=== PATIENT | female | born 1955 | race Caucasian/White ===

== ENCOUNTER 2017-01-04 12:08 | Emergency (ER) | payer BC ==
[~2017-01-04] VITALS: Ht 172.7 cm; Wt 95.5 kg
[2017-01-04] MEDS ORDERED: SIMV10TA2 (12:21)
[2017-01-04] MEDS ORDERED: FLAX100012 PO (12:21)
[2017-01-04] MEDS ORDERED: FISH100049 PO (12:21)
[2017-01-04] MEDS ORDERED: OMEP20CA3 (12:21)
[2017-01-04] MEDS ORDERED: ASPI1TAB15 (12:21)
[2017-01-04] MEDS ORDERED: FURO20TA2 (12:21)
[2017-01-04] MEDS ORDERED: GLUCTAB (12:21)
[2017-01-04] MEDS ORDERED: METO1TAB7 (12:21)
[2017-01-04] MEDS ORDERED: MULTCAP11 PO (12:21)
[2017-01-04 12:36] LABS: BASO % 0.4 % (0.0-1.0); EOS # 0.2 10^3/uL (0.0-0.50); IMMATURE GRANULOCYTE % 0.1 % (0-0); LYMPH % 29.5 % (24.0-44.0); MEAN CORPUSCULAR HEMOGLOBIN 29.5 pg (27.0-33.0); MEAN CORPUSCULAR HGB CONC 32.8 g/dl (32.0-36.5); MEAN CORPUSCULAR VOLUME 89.8 fl (80.0-96.0); MONO # 0.5 10^3/uL (0.0-0.8); MONO % 6.7 % (0.0-5.0); NEUTROPHILS % 60.3 % (36.0-66.0); PLATELET COUNT, AUTOMATED 289 10^3/uL (150-450); RED CELL DISTRIBUTION WIDTH 13.9 % (11.5-14.5); WHITE BLOOD COUNT 6.7 10^3/uL (4.0-10.0)
[2017-01-04] MEDS ORDERED: ASPIRIN 81 MG CHEW TABLET PO ONE (12:45)
[2017-01-04] MEDS ORDERED: GI COCKTAIL 50ML BTL(HYOSCYAMINE/MAALOX/LIDOCAINE VISCOUS)(1:3:1) PO ONE (12:45)
[2017-01-04 12:46] LABS: INR 0.85
[2017-01-04 13:02] LABS: ALBUMIN/GLOBULIN RATIO 1.14 (1.00-1.93); ALKALINE PHOSPHATASE 77 U/L (45-117); ALT/SGPT 34 U/L (12-78); ANION GAP 7 MEQ/L (8-16); AST/SGOT 23 U/L (15-37); BILIRUBIN,DIRECT < 0.1 MG/DL (0.0-0.2); BILIRUBIN,TOTAL 0.3 MG/DL (0.2-1.0); BLOOD UREA NITROGEN 23 MG/DL (7-18); CALCIUM LEVEL 9.1 MG/DL (8.8-10.2); CARBON DIOXIDE LEVEL 29 MEQ/L (21-32); CHLORIDE LEVEL 105 MEQ/L (98-107); CREATININE FOR GFR 0.74 MG/DL (0.55-1.02); GLOMERULAR FILTRATION RATE > 60.0 (>45); GLUCOSE, FASTING 80 MG/DL (80-110); POTASSIUM SERUM 4.1 MEQ/L (3.5-5.1); SODIUM LEVEL 141 MEQ/L (136-145); TOTAL PROTEIN 7.5 GM/DL (6.4-8.2)
[2017-01-04] MEDS ORDERED: NS 1,000 ML IV SCH (13:09)
[2017-01-04] MEDS ORDERED: ISOVUE-370 76% 100ML VIAL (Q9967) As Ordered ONE (13:15)
--- NOTE | 2017-01-04 13:24 | REP ---
Chest two views HISTORY: Chest pain Comparison: 05/10/2004 The lungs are clear. The heart is normal in size. The pulmonary vasculature is normal in appearance. The bony structure is intact. IMPRESSION: No acute disease. Signed by Meir Trejo MD 01/04/2017 01:15 P
--- NOTE | 2017-01-04 14:05 | REP ---
CT ANGIO CHEST: HISTORY: Chest pain. CONTRAST: Isovue 370, 75 mL. There are no filling defects in the main , right and left pulmonary arteries or their branches. The lungs are clear. There is no pleural effusion. There is no mediastinal mass. The heart is normal in size. Degenerative change is present in the thoracic spine. IMPRESSION: There is no pulmonary embolism. Signed by Meir Trejo MD 01/04/2017 02:12 P
--- NOTE | 2017-01-04 15:12 | ECGEPIP ---
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
[2017-01-04 18:51] VITALS: BP 141/73
--- NOTE | 2017-01-06 09:11 | ECGEPIP ---
Stationary ECG Study [facility] - ED Test Date: 2017-01-04 Pat Name: SUDHEER CLARK Department: Room: - Gender: F Elevated Guard: nt : 1955 Requested By: GABRIEL Nava Order Number: [id number] Reading MD: Cierra Gilman Measurements Intervals [place] Rate: 53 P: 61 [place]: 145 QRS: 20 QRSD: 93 T: 38 QT: 407 QTc: 384 Interpretive Statements SINUS BRADYCARDIA DECREASED RATE 01/04/17 12:16 Electronically Signed On 01-06-2017 9:11:40 EDT by Cierra Gilman
== END 2017-01-04 19:07 | disposition home or self-care (01) ==
LOC: M ED 12:08
DX: R07.9 Chest pain, unspecified (principal); E11.9 Type 2 diabetes mellitus without complications; I10 Essential (primary) hypertension; E78.5 Hyperlipidemia, unspecified; K21.9 Gastro-esophageal reflux disease without esophagitis; M54.30 Sciatica, unspecified side; Z79.84 Long term (current) use of oral hypoglycemic drugs; Z79.899 Other long term (current) drug therapy; Z79.82 Long term (current) use of aspirin; Z91.040 Latex allergy status; Z88.1 Allergy status to other antibiotic agents; Z88.2 Allergy status to sulfonamides
CPT/HCPCS: 71020; 71275; 80048; 80076; 82550; 82553; 83690; 85025; 85610; 85730; 93005; 93041; 94760; 96360; 96361; 99285; Q9967

== ENCOUNTER → 2017-04-23 | Outpatient (CLI) | payer BC | LOC: M WHC 13:15 | DX: Z12.31 Encounter for screening mammogram for malignant neoplasm of breast (principal); Z78.0 Asymptomatic menopausal state | CPT/HCPCS: 77067 ==

== ENCOUNTER 2017-07-27 09:19 | Emergency (ER) | payer BC | END 2017-07-27 12:54 | disposition home or self-care (01) | LOC: M ED 09:19 | DX: M71.21 Synovial cyst of popliteal space [Baker], right knee (principal); M17.11 Unilateral primary osteoarthritis, right knee; I25.10 Atherosclerotic heart disease of native coronary artery without angina pectoris; I25.2 Old myocardial infarction; E11.9 Type 2 diabetes mellitus without complications; I10 Essential (primary) hypertension; Z79.84 Long term (current) use of oral hypoglycemic drugs; Z79.899 Other long term (current) drug therapy; Z98.890 Other specified postprocedural states; Z91.040 Latex allergy status; Z88.1 Allergy status to other antibiotic agents; Z88.2 Allergy status to sulfonamides | CPT/HCPCS: 73564 ==

== ENCOUNTER → 2018-04-30 | Outpatient (CLI) | payer BC ==
[~2018-04-30] MED LIST: ACET30TAB PO; ASPI1TAB15; CLAR10CA3 PO; EQ O20TA4 PO; FISH100049 PO; FLAX100012 PO; FURO20TA2; GLUCTAB; LASI20TA3 PO; METO1TAB7; MULTCAP11 PO; OMEP20CA3; SIMV10TA2; TOPR50TA23 PO
--- NOTE | 2018-04-30 11:19 | REPMRS ---
Patient History The patient states she had a clinical breast exam in 06/2017. Patient is postmenopausal and is nulliparous. Family history of endometrial cancer at age 60 in mother. No Hormone Replacement Therapy Digital Woman Screen Mammo: April 30, 2018 - Exam #: [id number] Bilateral CC and MLO view(s) were taken. Technologist: India Shetty, Technologist Prior study comparison: April 23, 2017, digital woman screen mammo performed at [facility]. March 06, 2016, digital woman screen mammo performed at [facility]. March 05, 2015, digital bilateral screening mammo, performed at [facility]. FINDINGS: There are scattered fibroglandular densities. There has been no change in the appearance of the mammogram from the prior studies. There is a mild amount of scattered fibroglandular density which is fairly symmetric. There is no interval development of dominant mass, architectural distortion, or clustered microcalcification suggestive of malignancy. 3-D tomosynthesis shows no additional findings. Assessment: BI-RADS/ACR category 1 mammogram. Negative Mammogram. Recommendation Routine screening mammogram of both breasts in 1 year (for women over age 40). This patient's Lifetime Breast Cancer RIsk is estimated at 9.3 %. This mammogram was interpreted with the aid of an FDA-approved computer-aided dectection system. Electronically Signed By: Bola Stewart MD 04/30/18 [id number]
== END ==
LOC: M WHC 09:40
PROVIDERS: ATTEND Obstetrics & Gynecology
DX: Z12.31 Encounter for screening mammogram for malignant neoplasm of breast (principal); Z78.0 Asymptomatic menopausal state; Z80.49 Family history of malignant neoplasm of other genital organs

== ENCOUNTER 2018-12-08 12:42 | Emergency (ER) | payer BC ==
[~2018-12-08] VITALS: Ht 172.7 cm; Wt 102.3 kg
[~2018-12-08 12:42] MED LIST changes: +ACET-716 PO; -ACET30TAB PO; -OMEP20CA3; +OMEP20CA4; +TOPR50TA PO; -TOPR50TA23 PO
--- NOTE | 2018-12-08 14:30 | REP ---
RIGHT FOOT: Four views. HISTORY: Injury. Pain at the base of the great toe. FINDINGS: Four views of the right foot demonstrate overall normal mineralization. No fracture or subluxation is seen. There is Achilles calcaneal spurring. No erosive change. IMPRESSION: Achilles calcaneal spur. Otherwise, negative radiographs of the right foot. No fracture seen. Electronically Signed by Martin Stewart MD 12/08/2018 02:38 P
[2018-12-08 15:21] VITALS: BP 123/72
== END 2018-12-08 15:27 | disposition home or self-care (01) ==
LOC: M ED 12:42
DX: S90.851A Superficial foreign body, right foot, initial encounter (principal); X58.XXXA Exposure to other specified factors, initial encounter; Y92.89 Other specified places as the place of occurrence of the external cause; Y93.89 Activity, other specified; Y99.8 Other external cause status; E11.9 Type 2 diabetes mellitus without complications; I25.2 Old myocardial infarction; K21.9 Gastro-esophageal reflux disease without esophagitis; Z88.2 Allergy status to sulfonamides; Z91.040 Latex allergy status; Z79.899 Other long term (current) drug therapy; Z79.82 Long term (current) use of aspirin

== ENCOUNTER → 2018-12-28 | Outpatient (CLI) | payer BC ==
[2018-12-28 09:12] LABS: HEMATOCRIT 41.1 % (36.0-47.0); HEMOGLOBIN 12.8 g/dl (12.0-15.5); MEAN CORPUSCULAR HEMOGLOBIN 26.8 pg (27.0-33.0); MEAN CORPUSCULAR HGB CONC 31.1 g/dl (32.0-36.5); PLATELET COUNT, AUTOMATED 302 10^3/uL (150-450); RED BLOOD COUNT 4.78 10^6/uL (4.00-5.40); WHITE BLOOD COUNT 6.6 10^3/uL (4.0-10.0)
[2018-12-28 09:23] LABS: INR 0.96; PROTHROMBIN TIME 12.5 SECONDS (11.8-14.0)
[2018-12-28 09:35] LABS: ERYTHROCYTE SEDIMENTATION RATE 13 mm/hr (0-30)
[2018-12-28 09:45] LABS: ALT/SGPT 31 U/L (12-78); BILIRUBIN,TOTAL 0.4 MG/DL (0.2-1.0); BLOOD UREA NITROGEN 24 MG/DL (7-18); CALCIUM LEVEL 9.5 MG/DL (8.8-10.2); CARBON DIOXIDE LEVEL 30 MEQ/L (21-32); CHLORIDE LEVEL 106 MEQ/L (98-107); CREATININE FOR GFR 0.79 MG/DL (0.55-1.30); GLOMERULAR FILTRATION RATE > 60.0 (>45); GLUCOSE, FASTING 109 MG/DL (70-100); POTASSIUM SERUM 4.7 MEQ/L (3.5-5.1); SODIUM LEVEL 142 MEQ/L (136-145); TOTAL PROTEIN 7.2 GM/DL (6.4-8.2)
--- NOTE | 2018-12-28 23:29 | REP ---
PA and lateral chest: Comparison is 01/04/2017. There is also a comparison chest CT dated 01/04/2017. The lung kerr are clear. Cardiac size is normal. The right hilus is unremarkable. The left hilus is enlarged but is unchanged. There is no left hilar mass upon review of the Yakov CT. The left pulmonary artery appears congenitally enlarged. The mediastinum and skeletal structures are unremarkable. Impression: Essentially negative PA and lateral chest. 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 Electronically Signed by Sedrick Franklin MD 12/28/2018 10:51 A
== END ==
LOC: M LAB 08:18
PROVIDERS: ATTEND Orthopaedic Surgery
DX: Z01.818 Encounter for other preprocedural examination (principal); M17.11 Unilateral primary osteoarthritis, right knee

== ENCOUNTER 2019-01-17 06:39 | Inpatient (IN) | payer BC ==
--- NOTE | 2019-01-10 16:15 | HPE ---
DATE OF ANTICIPATED ADMISSION: 01/17/2019 CHIEF COMPLAINT: Right knee pain. HISTORY OF PRESENT ILLNESS: Audelia is a pleasant, 63-year-old female with progressively worsening right knee pain and stiffness. She has failed to improve with conservative treatment. She has elected for surgery for her continued symptoms. She has pain with weightbearing activities and her activities of daily living. X-rays of her knee are notable for advanced osteoarthritis of the right knee joint. She has consented for a right total knee arthroplasty by Dr. Ramo Heredia. Medical optimization was performed by CARLOS ENRIQUE [place]. ALLERGIES: LATEX and SULFA DRUGS. CURRENT MEDICATIONS: - baby aspirin once a day - Claritin 10 mg once a day - Lasix 20 mg 1/2 tablet a day - metformin 500 mg a day - omeprazole 40 mg a day - Toprol XL 50 mg once a day PAST MEDICAL HISTORY: Includes pre diabetes, hypertension, and hyperlipidemia. PAST SURGICAL HISTORY: Includes tonsillectomy, wisdom teeth extraction, dilation and curettage (D and C) with cone biopsy, heart catheterization, and two right knee arthroscopies. SOCIAL HISTORY: The patient is retired and does not smoke or drink alcohol. FAMILY HISTORY: Noncontributory. REVIEW OF SYSTEMS: This patient denies chest pain, heart palpitations, cough, wheezing, difficulty breathing and shortness of breath. She denies abdominal pain, nausea, vomiting, diarrhea or constipation. She denies recent upper respiratory infection or urinary tract infection symptoms. She does complain of persistent pain in the right knee. PHYSICAL EXAMINATION: General: She is A well-nourished, well-developed, in no acute distress, alert female patient. She walks with a moderate limp favoring the right lower extremity. She is not using assistive devices. Vital Signs: She is 5 feet, 8-3/4 inches tall, weighs 227.8 pounds. Temperature 96.6, blood pressure 118/76, pulse 72 and respirations of 16. Neck was supple without adenopathy or jugular venous distension. Lungs were clear to auscultation without rales or wheeze. Heart: Regular rate and rhythm. Abdomen: Bowel sounds were present. Extremities: Examination of the knee revealed intact skin. She had decreased range of motion secondary to pain and stiffness. The limb is neurovascularly intact. LABORATORY DATA: Chest x-ray showed no acute cardiopulmonary disease processes. ProTime was 12.5, INR 0.96. CBC showed MCH of 26.8, mean corpuscular hemoglobin of 31.1, red cell distribution width of 15.2. Sed rate was 13, glucose 109. BUN 24, creatinine 0.79. Sodium 142, potassium 4.7. We have not received the EKG or the clearance note. IMPRESSION: Symptomatic osteoarthritis of the right knee joint. PLAN: The patient has consented for a right total knee arthroplasty by Dr. Ramo Heredia. We will receive her EKG preoperatively and complete the record.
[2019-01-17] VITALS (9 sets, daily range): BP systolic 125–143; BP diastolic 68–78
[~2019-01-17] VITALS: Ht 172.7 cm; Wt 105.6 kg
[~2019-01-17 06:39] MED LIST changes: -ASPI1TAB15; +ASPI1TAB15 PO; +CLOT1CRE71 TOP; +FISH306C PO; -GLUCTAB; +GLUCTAB PO; +LIDOCAINE 1% MDV 20ML VIAL SQ PRN; +LR 1,000 ML IV ONE; +MULTCAP PO; +OMEP-221 PO; -SIMV10TA2; +SIMV10TA2 PO; +ceFAZolin SOD 2 GM in IV 1 EA IV ONE; +fentaNYL 100 MCG/2 ML INJECTION (J3010) IV SCH
[2019-01-17] MEDS ORDERED: PROPOFOL 500 MG/50 ML VIAL As Ordered ONE (07:04)
[2019-01-17] MEDS ORDERED: LIDOCAINE 2% INJ 100 MG/5 ML SDV (FOR ANES.) As Ordered ONE (07:05)
[2019-01-17] MEDS ORDERED: fentaNYL 100 MCG/2 ML INJECTION (J3010) As Ordered ONE ×2 (07:05→08:20)
[2019-01-17] MEDS ORDERED: MIDAZOLAM INJ 2 MG/2 ML VIAL (J2250) As Ordered ONE ×2 (07:05→08:20)
[2019-01-17] MEDS ORDERED: dexameTHASONE 4 MG/ML 1ML VIAL (J1100) As Ordered ONE (07:08)
[2019-01-17] MEDS ORDERED: ONDANSETRON 4MG/2ML VIAL (J2405) As Ordered ONE (07:09)
[2019-01-17] MEDS ORDERED: BUPIVACAINE LIPOSOME/PF 1.3% 20ML VIAL (13.3MG/ML)(EXPAREL)(C9290 PER1MG) As Ordered ONE (07:14)
[2019-01-17] MEDS ORDERED: ceFAZolin 1GM INJ (J0690 PER 500MG) As Ordered ONE (07:14)
[2019-01-17] MEDS ORDERED: TRANEXAMIC ACID 100 MG/ML 10ML VIAL As Ordered ONE (07:14)
[2019-01-17] MEDS ORDERED: EPINEPHrine INJ 1 MG/ML 1ML AMP As Ordered ONE (07:15)
--- NOTE | 2019-01-17 07:55 | IPN ---
DATE: 01/17/2019 The patient seen and examined. She wished to go ahead with a right total knee arthroplasty. She understands the nature this, the risks of bleeding, infection, damage to nerves, vessels, persistent pain, wear loosening, blood clots, medical problems, among others.
[2019-01-17] MEDS: MIDAZOLAM INJ 2 MG/2 ML VIAL (J2250) IV SCH ×2 (08:30→08:34)
[2019-01-17] MEDS ORDERED: EPINEPHrine INJ 1 MG/ML 1ML AMP ONE (10:28)
[2019-01-17] MEDS ORDERED: dexameTHASONE 10 MG/1 ML VIAL PRES.FREE (J1100) ONE (10:28)
[2019-01-17] MEDS ORDERED: ROPIvacaine 0.5% 30 ML INJECTION (J2795 PER 1MG) ONE ×2 (10:28→10:30)
[2019-01-17] MEDS ORDERED: LIDOCAINE 1% MDV 20ML VIAL ONE (10:30)
[2019-01-17] MEDS ORDERED: PROPOFOL 200 MG/20 ML VIAL As Ordered ONE (10:41)
--- NOTE | 2019-01-17 11:25 | RO ---
DATE OF PROCEDURE: 01/17/2019 PREOPERATIVE DIAGNOSIS: Right knee osteoarthritis. POSTOPERATIVE DIAGNOSIS: Right knee osteoarthritis. PROCEDURE: Right total knee arthroplasty using an ATTUNE rotating platform posterior stabilized, size 5 femur, size 6 tibial tray, 7 polyethylene, 35 patellar button. SURGEON: Ramo Heredia MD DEVOPS DEVELOPER: JAYLEEN Mcdaniels ANESTHESIA: Spinal. ESTIMATED BLOOD LOSS: Less than 50 mL. COMPLICATIONS: None. INDICATIONS: This is a 63-year-old who has had gradually worsening knee pain and wished to have surgical treatment. PROCEDURE: The patient was taken to the operating room and placed in supine position after spinal anesthesia was induced. The right lower extremity was prepped and draped in usual sterile fashion. A time out was performed. Tourniquet was inflated. A longitudinal incision was made over the anterior aspect the right knee. Sharp dissection was carried down through subcutaneous tissue. I then did a medial parapatellar arthrotomy, flexed the knee up then used the canal initiating reamer followed by the intramedullary guide set at 7 degrees of valgus and 9 mm cut. This was pinned in place and the distal femoral cut was made taking an extra 2 mm due to a flexion contracture. She did have a preexisting stiff the with some loss of extension about 10 degrees in flexion to only about 90. I sized the femur to be a 5, used the cutting block, secured it in place and made the remaining cuts. Directed our attention to the tibia. The tibial alignment guide was then placed, the proximal tibia cut was made removing about 4 mm from the low side. I then used the trolley wire installer to remove soft tissue and osteophytes from either side of the knee and made the box cut on the femoral side using a saw and the guide. We then prepared the tibial surface. It was sized to be a 6, pinned in place, drilled and broached. Trial components were then inserted and I was very pleased with the balance and alignment. We used a size 7 polyethylene. The fit was excellent. I then freehand cut the patella sized it to be a 35, the drill holes were placed in the patella and femur. I did have do somewhat of a lateral release to allow for tracking, which is common of valgus knee. I then removed the trial components, irrigated, placed the Exparel in the deep tissues, dried the bony surface cemented in the components, removed excess bone cement, held the patella in place until the cement had hardened. Irrigated copiously as I had several times prior to this and then placed the TXA deep in the wound and closed the deep layer of #1 Vicryl suture and running STRATAFIX and a final deep irrigation was performed prior to complete wound closure. I then used #2-0 to close the subcu and the skin with yuly. Sterile dressing was applied. Tourniquet was deflated. She was taken to recovery room in stable condition. No known complications. The plan will be routine postop. The supply assistant was instrumental in holding retractors and assisting in mixing bone cement and assisting in wound closure.
[2019-01-17] MEDS ORDERED: MORPHINE 4 MG/ML 1ML VIAL/SYRINGE (J2270) IV PRN ×2 (11:30)
[2019-01-17] MEDS ORDERED: fentaNYL 100 MCG/2 ML INJECTION (J3010) IV PRN (11:30)
[2019-01-17] MEDS ORDERED: ACETAMINOPHEN TAB 650MG DOSE (2X325MG) PO PRN (11:30)
[2019-01-17] MEDS ORDERED: LR 1,000 ML IV SCH ×2 (11:30)
[2019-01-17] MEDS ORDERED: ONDANSETRON 4MG/2ML VIAL (J2405) IV PRN ×2 (11:30)
[2019-01-17] MEDS ORDERED: oxyCODONE 5MG TAB PO PRN (11:30)
[2019-01-17] MEDS ORDERED: FLEET ENEMA PR PRN (11:30)
[2019-01-17] MEDS ORDERED: MORPHINE 10 MG/ML 1ML VIAL (J2270) IV PRN (11:30)
[2019-01-17] MEDS ORDERED: DEXTROSE 50% 50 ML SYRINGE IV PRN (11:45)
[2019-01-17] MEDS ORDERED: GLUCOSE 4 GM CHEW TABLET PO PRN (11:45)
[2019-01-17] MEDS ORDERED: GLUCAGON FOR INJ 1 MG VIAL (J1610) SC PRN (11:45)
[2019-01-17] MEDS: HumaLOG INSULIN (NovoLOG) PER UNIT SC SCH ×2 (12:00→17:30)
--- NOTE | 2019-01-17 12:12 | REP ---
Right knee series: Two views. History: Postop. Comparison right knee radiographs July 27 1017. Findings: AP and lateral views of the right knee demonstrate anterior skin yuly. Right knee arthroplasty is seen in good position. There is periarticular soft-tissue swelling and periarticular soft tissue emphysema. Impression: Status post right knee arthroplasty. Electronically Signed by Martin Stewart MD 01/17/2019 12:04 P
[2019-01-17] MEDS ORDERED: POLYVINYL ALCOHOL OPHTH SOLN 15 ML(LIQUITEARS) OU PRN (15:15)
[2019-01-17] MEDS: ceFAZolin SOD 2 GM in IV 1 EA IV SCH (15:46)
--- NOTE | 2019-01-17 16:05 | HPEPDOC ---
General Date of Admission Jan 17, 2019 at 06:39 Date of Service: Jan 17, 2019 Chief Complaint The patient is a 63-year-old female admitted with a reason for visit of Osteoarthritis Right Knee. Source: Patient, RN/MD, Old records History of Present Illness Consultation Report Consultation requested by Dr Heredia Consultation for management of medical commorbidities HPI: 63-year-old female with progressively worsening right knee pain and stiffness. She has failed to improve with conservative treatment. She has elected for surgery for her continued symptoms. She has pain with weightbearing activities and her activities of daily living. X-rays of her knee are notable for advanced osteoarthritis of the right knee joint. She was admitted by orthopedics for elective right total knee replacement. Hospitalist consulted for management of medical comorbidities. Now pateint is complaining of right eye scratchiness and right nasal congestion and runny nose on the right . She sais she lso had severel sneezes a little earlier. She said her eyes were also red. . Her knee pain is controlled as she has the pain buster in it. Home Medications Scheduled Aspirin (Aspirin EC) 81 Mg Tab, 81 MG PO DAILY, (Reported) Clotrimazole/Betamethasone Dip (Clotrimazole-Betamethasone Crm) 15 Gm Cream..g., 1 UNIT TOP BID, (Reported) to left ear Furosemide (Lasix) 20 Mg Tab, 10 MG PO DAILY, (Reported) Loratadine (Claritin) 10 Mg Cap, 10 MG PO DAILY, (Reported) Metformin HCl (Glucophage Xr) 500 Mg Tab, 500 MG PO DAILY, (Reported) Metoprolol Succinate (Toprol Xl) 50 Mg Tab, 50 MG PO DAILY, (Reported) Multivitamin (Multivitamins) 1 Each Capsule, 1 CAP PO DAILY, (Reported) Omeprazole (Omeprazole) 40 Mg Capsule.dr, 40 MG PO DAILY, (Reported) Simvastatin (Simvastatin) 10 Mg Tab, 10 MG PO DAILY, (Reported) Allergies Coded Allergies: Sulfa (Sulfonamide Antibiotics) (Verified Allergy, Unknown, 01/10/19) latex (Verified Allergy, Unknown, 01/10/19) sulfamethoxazole (Verified Adverse Reaction, Unknown, GI UPSET, 01/10/19) trimethoprim (Verified Adverse Reaction, Unknown, GI UPSET, 01/10/19) Past Medical History Medical History diabetes, hypertension, hyperlipidemia, LORENA not on CPAP or oxygen as allergic to latex and face swells up. Surgical History tonsillectomy, wisdom teeth extraction, dilation and curettage (D and C) with cone biopsy, heart catheterization, and two right knee arthroscopies. Social History * Smoker: Denies Alcohol: Denies Drugs: denies A-FIB/CHADSVASC A-FIB History Current/History of A-Fib/PAF?: No Review of Systems Constitutional: Denies: Chills, Fever, Night Sweats Eyes: Reports: Pain, Redness ENT: Reports: Other Symptoms (right runny nose, sneezing); Denies: Head Aches, Ear Pain, Dysphagia Skin: Denies: Rash, Lesions, Breakdown Pulmonary: Denies: Dyspnea, Cough Cardiovascular: Denies: Chest Pain, Palpitations, Orthopnea, Paroxysmal Noc. Dyspnea, Lt Headedness Gastrointestinal: Denies: Nausea, Vomiting, Abdominal Pain, Diarrhea Genitourinary: Denies: Dysuria, Frequency, Incontinence, Retention Hematologic: Denies: Bruising, Bleeding Excessively Musculoskeletal: Denies: Neck Pain, Back Pain, Joint Pain, Muscle Pain, Spasms Neurological: Denies: Weakness, Numbness, Change in speech, Confusion Physical Examination General Exam: Positive: Alert, Cooperative, No Acute Distress Eye Exam: Positive: PERRLA, Conjunctiva & lids normal, EOMI; Negative: Sclera icteric ENT Exam: Positive: Atraumatic, Mucous membr. moist/pink, Pharynx Normal Neck Exam: Positive: Supple; Negative: JVD, thyromegaly Chest Exam: Positive: Clear to auscultation, Normal air movement Heart Exam: Positive: Rate Normal, Regular Rhythm, Normal S1, Normal S2; Negative: Murmurs, Rubs Abdomen Exam: Positive: Normal bowel sounds, Soft; Negative: Tenderness, Hepatospenomegaly Extremity Exam: Positive: Normal pulses; Negative: Clubbing, Cyanosis, Edema Skin Exam: Positive: Nl turgor and temperature; Negative: Breakdown, Lesion Vital Signs Vital Signs Date Time Temp Pulse Resp B/P (MAP) Pulse Ox O2 Delivery O2 Flow Rate FiO2 01/17/19 09:00 72 18 130/63 (85) 99 3 01/17/19 07:43 97.1 Laboratory Data Labs 24H Laboratory Tests 2 01/17/19 07:42: Bedside Glucose (Misc Panel) 100 Assessment/Plan 63-year-old female with progressively worsening right knee pain and stiffness. She has failed to improve with conservative treatment. She has elected for surgery for her continued symptoms. She has pain with weightbearing activities and her activities of daily living. X-rays of her knee are notable for advanced osteoarthritis of the right knee joint. She was admitted by orthopedics for elective right total knee replacement. Hospitalist consulted for management of medical comorbidities. Right eye irritation no redness seen will give cipro lubricant eye drip may be due to dryness. s/p right total knee replacement for advanced OA pain control and dvt prophylaxis as per orthopedics. Diabetes lispro as per sliding scale hold metformin Hypertension continue metoprolol with hold parameters hyperlipidemia continue statin GERD continue omeprazole LORENA not treated as allergic to latex so cannot tolerate the mask. Follow LORENA protocol. Plan / VTE VTE Prophylaxis Ordered?: Yes AMARI RAMOS MD Jan 17, 2019 11:32
[2019-01-17] MEDS ORDERED: SIMVASTATIN 10 MG TAB PO SCH (21:00)
[2019-01-17] MEDS ORDERED: HumaLOG INSULIN (NovoLOG) PER UNIT SC SCH (21:00)
[2019-01-17] MEDS: PERCOCET 5MG/325MG TAB PO PRN (21:21)
[2019-01-18] MEDS: FLUTICASONE PROP 0.05% NASAL SPRAY 16 GM (FLONASE) NARES PRN ×2 (00:26→13:21)
[2019-01-18] MEDS: ceFAZolin SOD 2 GM in IV 1 EA IV SCH (00:26)
[2019-01-18 02:00] VITALS: BP 136/68
[2019-01-18] MEDS: PERCOCET 5MG/325MG TAB PO PRN ×3 (03:14→13:22)
[2019-01-18 06:00] VITALS: BP 127/64
[2019-01-18 06:23] LABS: HEMATOCRIT 31.1 % (36.0-47.0); HEMOGLOBIN 9.9 g/dl (12.0-15.5); MEAN CORPUSCULAR HEMOGLOBIN 27.9 pg (27.0-33.0); MEAN CORPUSCULAR HGB CONC 31.8 g/dl (32.0-36.5); MEAN CORPUSCULAR VOLUME 87.6 fl (80.0-96.0); PLATELET COUNT, AUTOMATED 261 10^3/uL (150-450); RED BLOOD COUNT 3.55 10^6/uL (4.00-5.40); WHITE BLOOD COUNT 13.1 10^3/uL (4.0-10.0)
[2019-01-18] MEDS ORDERED: PERC5TAB12 PO (06:40)
[2019-01-18] MEDS ORDERED: XARE10TA PO (06:40)
[2019-01-18 06:42] LABS: BLOOD UREA NITROGEN 24 MG/DL (7-18); CALCIUM LEVEL 8.7 MG/DL (8.8-10.2); CARBON DIOXIDE LEVEL 28 MEQ/L (21-32); CHLORIDE LEVEL 105 MEQ/L (98-107); CREATININE FOR GFR 0.82 MG/DL (0.55-1.30); GLOMERULAR FILTRATION RATE > 60.0 (>45); GLUCOSE, FASTING 140 MG/DL (70-100); POTASSIUM SERUM 4.4 MEQ/L (3.5-5.1); SODIUM LEVEL 138 MEQ/L (136-145)
[2019-01-18] MEDS: HumaLOG INSULIN (NovoLOG) PER UNIT SC SCH ×2 (07:30→11:36)
[2019-01-18] MEDS ORDERED: RIVAROXABAN 10 MG TAB (XARELTO) PO SCH ×2 (08:00→18:00)
[2019-01-18] MEDS ORDERED: MOM 30ML SUSPENSION UDC PO SCH (09:00)
[2019-01-18] MEDS ORDERED: SENOKOT S TAB PO SCH (09:00)
[2019-01-18] MEDS ORDERED: METOPROLOL SUCC (TopROL XL) 50MG **XL** TAB PO SCH (09:00)
[2019-01-18] MEDS ORDERED: MIRALAX *UNIT DOSE* 17GM PACKET PO SCH (09:00)
[2019-01-18] MEDS ORDERED: OMEPRAZOLE 20 MG CAP PO SCH (09:00)
[2019-01-18 09:19] VITALS: BP 127/64
[2019-01-18 10:00] VITALS: BP 149/79
[2019-01-18 14:00] VITALS: BP 139/80
== END 2019-01-18 16:15 | disposition home or self-care (01) | DRG 302 ==
LOC: M OR 06:39 → M MS5PR 12:15
PROVIDERS: ADMIT Orthopaedic Surgery; ATTEND Orthopaedic Surgery
PROC: 0SRC0J9 Replacement of Right Knee Joint with Synthetic Substitute, Cemented, Open Approach (ICD-10-PCS; principal; 2019-01-17 09:00)
DX: M17.11 Unilateral primary osteoarthritis, right knee (principal); I10 Essential (primary) hypertension; R73.03 Prediabetes; G47.33 Obstructive sleep apnea (adult) (pediatric); E78.5 Hyperlipidemia, unspecified; R26.89 Other abnormalities of gait and mobility; H57.89 Other specified disorders of eye and adnexa; Z79.82 Long term (current) use of aspirin; Z79.899 Other long term (current) drug therapy; Z88.2 Allergy status to sulfonamides; Z91.040 Latex allergy status; Z88.8 Allergy status to other drugs, medicaments and biological substances

== ENCOUNTER 2019-02-02 10:43 | Outpatient (RCR) | payer BC ==
[~2019-02-02 10:43] MED LIST changes: -LIDOCAINE 1% MDV 20ML VIAL SQ PRN; -LR 1,000 ML IV ONE; +PERC5TAB12 PO; +XARE10TA PO; -ceFAZolin SOD 2 GM in IV 1 EA IV ONE; -fentaNYL 100 MCG/2 ML INJECTION (J3010) IV SCH
== END 2019-02-03 ==
LOC: M PT 10:43
PROVIDERS: ATTEND Orthopaedic Surgery
DX: Z47.1 Aftercare following joint replacement surgery (principal); Z96.651 Presence of right artificial knee joint

== ENCOUNTER 2019-02-23 11:24 | Outpatient (RCR) | payer BC ==
[~2019-02-23 11:24] MED LIST changes: -SIMV10TA2 PO; +SIMV10TA21 PO
== END 2019-03-05 ==
LOC: M PT 11:24
PROVIDERS: ATTEND Orthopaedic Surgery
DX: Z47.1 Aftercare following joint replacement surgery (principal); Z96.651 Presence of right artificial knee joint

== ENCOUNTER 2019-03-28 11:00 | Outpatient (RCR) | payer BC ==
[~2019-03-28 11:00] MED LIST changes: +OMEP-172; -OMEP20CA4
== END 2019-04-05 ==
LOC: M PT 11:00
PROVIDERS: ATTEND Orthopaedic Surgery
DX: Z96.651 Presence of right artificial knee joint (principal)

== ENCOUNTER → 2019-05-06 | Outpatient (RCR) | payer BC ==
[~2019-05-06] MED LIST changes: -OMEP-172; +OMEP1CAP73
== END ==
LOC: M PT 10:37
PROVIDERS: ATTEND Orthopaedic Surgery
DX: Z96.651 Presence of right artificial knee joint (principal)

== ENCOUNTER → 2019-05-10 | Outpatient (CLI) | payer BC ==
--- NOTE | 2019-05-10 12:25 | REPMRS ---
Patient History The patient states she had a clinical breast exam in June 2019.Family history of endometrial cancer at age 60 in mother. No Hormone Replacement Therapy Digital Woman Screen Mammo: May 10, 2019 - Exam #: [id number] Bilateral CC and MLO view(s) were taken. Technologist: Ivonne Bledsoe, Technologist Prior study comparison: April 30, 2018, bilateral digital woman screen mammo performed at [facility]. April 23, 2017, digital woman screen mammo performed at [facility]. March 06, 2016, digital woman screen mammo performed at [facility]. FINDINGS: There are scattered fibroglandular densities. There has been no change in the appearance of the mammogram from the prior studies. There is a mild amount of scattered fibroglandular density which is fairly symmetric. There is no interval development of dominant mass, architectural distortion, or grouped microcalcification suggestive of malignancy. 3-D tomosynthesis shows no additional findings. Assessment: BI-RADS/ACR category 1 mammogram. Negative Mammogram. Recommendation Routine screening mammogram of both breasts in 1 year (for women over age 40). This patient's Lifetime Breast Cancer Risk is estimated at 9.2 %. This mammogram was interpreted with the aid of an FDA-approved computer-aided dectection system. Electronically Signed By: Bola Stewart MD 05/10/19 [id number]
== END ==
LOC: M WHC 08:45
PROVIDERS: ATTEND Obstetrics & Gynecology
DX: Z12.31 Encounter for screening mammogram for malignant neoplasm of breast (principal)

== ENCOUNTER → 2019-12-26 | Outpatient (CLI) | payer BC ==
[~2019-12-26] MED LIST changes: +ASPI-546 PO; -ASPI1TAB15 PO
--- NOTE | 2020-01-05 16:11 | REP ---
TRIPLE PHASE BONE SCAN OF THE KNEES HISTORY: Artificial right knee joint. Rule out loosening. Following the intravenous administration of 22 mCi Technetium-99m MDP, immediate flow images are obtained in the anterior posterior projections in the region of the knees. There is no abnormal blood flow. Immediate blood pool and three hour delayed images are performed of the knees in various projections. Photopenic right knee prosthesis is noted. There is mild surrounding increased blood pooling. There is mild increased uptake in the distal end of the femur and proximal end of the tibia adjacent to the prosthetic components. There is also mild diffuse increased uptake in the patella. Differential diagnosis would include postsurgical uptake versus some degree of loosening. Clinical correlation is necessary. MTDD
== END ==
LOC: M RAD 07:56
PROVIDERS: ATTEND Orthopaedic Surgery
DX: Z96.651 Presence of right artificial knee joint (principal)
CPT/HCPCS: 78315; A9503

== ENCOUNTER → 2020-05-11 | Outpatient (CLI) | payer BC ==
--- NOTE | 2020-05-11 09:30 | REPMRS ---
Patient History The patient states she had a clinical breast exam in June 2019. Family history of endometrial cancer at age 60 in mother. No Hormone Replacement Therapy Digital Woman Screen Mammo: May 11, 2020 - Exam #: [id number] Bilateral CC and MLO view(s) were taken. Technologist: Becky Cullen, Technologist Prior study comparison: May 10, 2019, bilateral digital woman screen mammo performed at [facility]. April 30, 2018, bilateral digital woman screen mammo performed at [facility]. April 23, 2017, digital woman screen mammo performed at [facility]. FINDINGS: The breast tissue is almost entirely fat. The Volpara volumetric breast density category is: A. There has been no change in the appearance of the mammogram from the prior studies. There is no interval development of dominant mass, architectural distortion, or grouped microcalcification typical of malignancy. 3-D tomosynthesis shows no additional findings. Assessment: BI-RADS/ACR category 1 mammogram. Negative Mammogram. Recommendation Routine screening mammogram of both breasts in 1 year (for women over age 40). This patient's [facility] Lifetime Breast Cancer RIsk is estimated at 8.6 %. This mammogram was interpreted with the aid of an FDA-approved computer-aided dectection system. Electronically Signed By: Bola Stewart MD 05/11/20 0929
== END ==
LOC: M WHC 08:48
PROVIDERS: ATTEND Obstetrics & Gynecology
DX: Z12.31 Encounter for screening mammogram for malignant neoplasm of breast (principal); Z80.49 Family history of malignant neoplasm of other genital organs

== ENCOUNTER 2020-11-13 17:40 | Emergency (ER) | payer BC ==
[~2020-11-13] VITALS: Ht 172.7 cm; Wt 113.2 kg
[2020-11-13 19:22] LABS: BASO % 0.4 % (0.0-1.0); EOS # 0.2 10^3/uL (0.0-0.5); EOS % 2.5 % (0.0-3.0); HEMATOCRIT 36.9 % (36.0-47.0); HEMOGLOBIN 11.1 g/dl (12.0-15.5); LYMPH # 2.4 10^3/uL (1.5-5.0); LYMPH % 35.3 % (24.0-44.0); MEAN CORPUSCULAR HEMOGLOBIN 25.6 pg (27.0-33.0); MEAN CORPUSCULAR HGB CONC 30.1 g/dl (32.0-36.5); MONO # 0.6 10^3/uL (0.0-0.8); MONO % 8.2 % (2.0-8.0); NEUTROPHILS # 3.7 10^3/uL (1.5-8.5); NEUTROPHILS % 53.5 % (36.0-66.0); PLATELET COUNT, AUTOMATED 322 10^3/uL (150-450); RED BLOOD COUNT 4.34 10^6/uL (4.00-5.40); WHITE BLOOD COUNT 6.9 10^3/uL (4.0-10.0)
[2020-11-13 19:47] LABS: ALBUMIN 3.7 GM/DL (3.2-5.2); ALT/SGPT 30 U/L (12-78); BILIRUBIN,DIRECT < 0.1 MG/DL (0.0-0.2); BILIRUBIN,TOTAL 0.2 MG/DL (0.2-1.0); BLOOD UREA NITROGEN 25 MG/DL (7-18); CALCIUM LEVEL 9.2 MG/DL (8.8-10.2); CARBON DIOXIDE LEVEL 29 MEQ/L (21-32); CHLORIDE LEVEL 111 MEQ/L (98-107); CK-MB VALUE MASS 1.6 NG/ML (<3.6); CPK CREATINE PHOSPHOKINASE 181 U/L (26-192); GLOMERULAR FILTRATION RATE > 60.0 (>45); GLUCOSE, FASTING 103 MG/DL (70-100); LIPASE 104 U/L (73-393); MB/CK RELATIVE INDEX 0.88 (< OR =4); POTASSIUM SERUM 4.5 MEQ/L (3.5-5.1); SODIUM LEVEL 145 MEQ/L (136-145); TOTAL PROTEIN 6.9 GM/DL (6.4-8.2); TROPONIN I < 0.02 NG/ML (< 0.10)
--- NOTE | 2020-11-13 20:05 | REP ---
INDICATION: CHEST PAIN. COMPARISON: 12/28/2018 PA and lateral TECHNIQUE: Portable FINDINGS: The technique utilized in obtaining the radiograph has magnified the cardiac silhouette and accentuated the interstitial markings. The superior mediastinal structures are midline. The cardiac silhouette is unremarkable in size, shape, and position. The diaphragmatic surfaces of the lungs are regular, and the costophrenic angles are clear. The pulmonary kerr are clear. The imaged osseous structures are intact. IMPRESSION: There is no acute cardiopulmonary disease. <Electronically signed by Prince Pelayo > 11/13/202000
[2020-11-13 20:38] LABS: FREE T4 1.03 NG/DL (0.76-1.46); MAGNESIUM LEVEL 2.2 MG/DL (1.8-2.4)
[2020-11-13] MEDS ORDERED: ECOT81TA5 PO (21:25)
[2020-11-13 22:00] VITALS: BP 127/63
--- NOTE | 2020-11-15 06:25 | ECGEPIP ---
[facility] - ED Test Date: 2020-11-13 Pat Name: SUDHEER CLARK Department: Room: - Gender: Female Voice Instructor: TBEDNAR : 1955 Requested By: GABRIEL Nava Order Number: [id number] Reading MD: Daniel Fried Measurements Intervals [place] Rate: 81 P: 66 AL: 142 QRS: 6 QRSD: 76 T: 56 QT: 314 QTc: 364 Interpretive Statements Normal sinus rhythm Nonspecific ST abnormality SIMILAR TO 01/04/17 Electronically Signed on 11-15-2020 6:24:56 EDT by Daniel Fried
== END 2020-11-13 22:15 | disposition home or self-care (01) ==
LOC: M ED 17:40
DX: R00.2 Palpitations (principal); E11.9 Type 2 diabetes mellitus without complications; E78.5 Hyperlipidemia, unspecified; I10 Essential (primary) hypertension; Z98.61 Coronary angioplasty status; Z79.82 Long term (current) use of aspirin; Z79.899 Other long term (current) drug therapy; Z88.2 Allergy status to sulfonamides; Z91.040 Latex allergy status

== ENCOUNTER → 2021-04-11 | Outpatient (CLI) | payer BC ==
[~2021-04-11] MED LIST changes: +ECOT81TA5 PO
== END ==
LOC: M WHC 07:51
PROVIDERS: ATTEND Family Medicine
DX: N64.4 Mastodynia (principal)

== ENCOUNTER → 2022-07-24 | Outpatient (REF) | payer BC ==
[~2022-07-24] MED LIST changes: -OMEP-221 PO; +OMEP40CA5 PO
== END ==
LOC: M SFHCWAGY 17:45
PROVIDERS: ATTEND Obstetrics & Gynecology
DX: Z12.4 Encounter for screening for malignant neoplasm of cervix (principal)

== ENCOUNTER → 2022-07-24 | Outpatient (CLI) | payer BC | LOC: M WHC 12:58 | PROVIDERS: ATTEND Obstetrics & Gynecology | DX: Z12.31 Encounter for screening mammogram for malignant neoplasm of breast (principal) ==

== ENCOUNTER → 2023-11-10 | Outpatient (CLI) | payer BC | LOC: M WHC 09:24 | PROVIDERS: ATTEND Obstetrics & Gynecology | DX: Z12.31 Encounter for screening mammogram for malignant neoplasm of breast (principal) ==

== ENCOUNTER → 2023-11-10 | Outpatient (REF) | payer BC | LOC: M SFHCWAGY 08:19 | PROVIDERS: ATTEND Obstetrics & Gynecology | DX: Z12.4 Encounter for screening for malignant neoplasm of cervix (principal) ==

== ENCOUNTER → 2023-12-10 | Outpatient (REF) | payer BC | LOC: M SFHCWAGY 15:10 | PROVIDERS: ATTEND Obstetrics & Gynecology | DX: N90.89 Other specified noninflammatory disorders of vulva and perineum (principal); L85.9 Epidermal thickening, unspecified; L11.9 Acantholytic disorder, unspecified; L30.8 Other specified dermatitis ==